=== PATIENT | male | born 1995 | race Caucasian/White ===

== ENCOUNTER 2021-07-24 20:44 | Emergency (ER) | payer MEDICAID, SELFPAY ==
--- NOTE | ~2021-07-24 | XR_ITS ---
EXAMINATION: XR SHOULDER, RIGHT CLINICAL INFORMATION: Pain COMPARISON: None TECHNIQUE: 3 plain film views of the right shoulder. FINDINGS: The bones and soft tissues are normal. No fracture. Glenohumeral and acromioclavicular alignment is anatomic with normal joint space. No abnormal soft tissue calcifications. XR/XR shoulder RT min 2V IMPRESSION: Normal right shoulder.
[2021-07-24 20:49] VITALS: BP 116/71; PULSE 71; RESP 17; TEMP 36.8; O2SAT 98
--- NOTE | 2021-07-24 21:11 | ED.EXTPRO ---
HPI - Extremity Problem General Chief complaint: Extremity Injury, Upper Stated complaint: ?Shoulder dislocation Time Seen by Provider: 07/24/21 21:11 Source: patient Mode of arrival: ambulatory Limitations: no limitations History of Present Illness HPI Narrative: Patient history of recurrent shoulder dislocation was throwing a ball at the game and felt his right arm dislocated similar to that in the past no other injuries no numbness or tingling Related Data Allergies Allergy/AdvReac Type Severity Reaction Status Date / Time No Known Allergies Allergy Verified 07/24/21 20:48 [No Known Allergies*] Review of Systems Review of Systems: Yes all other systems are reviewed and are negative [facility] Past Medical History Medical History Asthma Dislocation of joint of right upper extremity Social History Social History Patient Tobacco Use Status: Never used Tobacco Use of substances other than those prescribed or required for medical reasons: Yes Substance Use Type: Marijuana Substance Use Frequency: Daily Advance Directives: No Advance Directives Information Provided: No Physical Exam Vital Signs: Vital Signs: Last Vital Signs Temp 98.3 F 07/24/21 20:49 Pulse 75 07/24/21 21:39 Resp 18 07/24/21 21:39 BP 122/75 07/24/21 21:39 Pulse Ox 98 07/24/21 21:39 Body Mass Index 30.0 Const: General: well developed and acute distress moderate HENMT: Head: Yes normocephalic and Yes atraumatic Resp: Effort & Inspection: normal respiratory effort Auscultation: clear to auscultation bilaterally Cardio: Rate: regular rate Rhythm: regular rhythm Heart sounds: S1 normal heart sound present and S2 normal heart sound present Extrem: General: Yes normal to inspection Right upper extremity: normal to inspection Shoulder/upper arm images: 1. Normal contour diffuse tenderness neurovascular intact painful abduction MDM - Extremity (Nontraumatic) MDM Narrative Medical decision making narrative: Patient x-ray negative for dislocation able to move his arm with slight pain likely muscle strain discharge patient home on sling and ibuprofen Discharge Plan Discharge Clinical Impression: Muscle strain of right shoulder Qualifiers: Encounter type: initial encounter Qualified Code(s): S46.911A - Strain of unspecified muscle, fascia and tendon at shoulder and upper arm level, right arm, initial encounter Patient Disposition: Home, Self-Care Instructions: Muscle Strain (ED) Additional Instructions: Wear the sling for support Motrin for pain Your shoulder is not dislocated at this time
[2021-07-24 21:39] VITALS: BP 122/75; PULSE 75; RESP 18; O2SAT 98
[2021-07-24] MEDS: oxyCODONE HCl Immed Release 5 MG TABLET 10 MG PO (21:41)
== END 2021-07-24 22:17 | disposition home or self-care (01) ==
PROVIDERS: Emergency Provider Internal Medicine
DX: S46.911A Strain of unspecified muscle, fascia and tendon at shoulder and upper arm level, right arm, initial encounter (principal); M25.511 Pain in right shoulder; F12.90 Cannabis use, unspecified, uncomplicated; X50.1XXA Overexertion from prolonged static or awkward postures, initial encounter; Y93.64 Activity, baseball; Y92.320 Baseball field as the place of occurrence of the external cause; Y99.9 Unspecified external cause status
CPT/HCPCS: 73030; 99283; 99284